=== PATIENT | male | born 1970 | race Caucasian/White ===

== ENCOUNTER 2018-07-11 23:26 | Emergency (ER) | payer SELFPAY ==
[~2018-07-11] VITALS: Ht 185.4 cm; Wt 88.5 kg
--- NOTE | 2018-07-11 23:50 | NUR ---
PTP BIBSELF C/O LEFT SIDED CHEST PAIN WITH LEFT ARM NUMBNESS AND TINGLING. PT A0X4. NAD NOTED. PT ON MONITOR IN BED 2 WITH FAMILY AT BEDSIDE. WILL CONTINUE TO MONITOR.
--- NOTE | 2018-07-11 23:52 | NUR ---
TECH AT BEDSIDE FOR EKG
--- NOTE | 2018-07-12 | NUR ---
PHLEB AT BEDSIDE FOR LAB DRAW
--- NOTE | 2018-07-12 00:02 | NUR ---
RADIOLOGY AT BEDSIDE FOR CXR
[2018-07-12 00:29] LABS: BASOPHILS % (AUTO) 0.3 % (0.0-2.0); EOSINOPHILS % (AUTO) 0.9 % (0.0-6.0); HEMATOCRIT 48 % (39-51); HEMOGLOBIN 15.8 g/dL (13.5-17.5); LYMPHOCYTES # (AUTO) 1.7 /CMM (0.8-4.8); LYMPHOCYTES % (AUTO) 23.6 % (20.0-44.0); MEAN CORPUSCULAR HGB CONC 33 g/dl (31.0-36.0); MEAN CORPUSCULAR VOLUME 96 fL (80-96); MONOCYTES # (AUTO) 0.5 /CMM (0.1-1.30); MONOCYTES % (AUTO) 7.1 % (2.0-12.0); NEUTROPHILS % (AUTO) 68.1 % (43.0-81.0); PLATELET COUNT (AUTO) 185 /CMM (150-450); RED BLOOD CELL COUNT(AUTO) 5.03 MIL/uL (4.5-6.0); WHITE BLOOD COUNT (AUTO) 7.4 K/uL (4.3-11.0)
[2018-07-12 00:39] LABS: CALCIUM, SERUM 9.4 mg/dL (8.5-10.1); CARBON DIOXIDE 30 mmol/L (21-32); CHLORIDE 107 mmol/L (98-107); CREATININE 1.1 mg/dL (0.6-1.3); GLUCOSE 98 mg/dL (74-106); POTASSIUM 3.8 mmol/L (3.5-5.1); SODIUM SERUM 145 mmol/L (136-145); UREA NITROGEN, BLOOD 16 mg/dL (7-18)
[2018-07-12 01:00] LABS: D-DIMER 0.19 mg/L(FEU (0.17-0.50)
--- NOTE | 2018-07-12 02:13 | NUR ---
Patient is resting comfortably in bed with eyes closed. Easily aroused. VSS. family at bedside.
--- NOTE | 2018-07-12 03:08 | NUR ---
PHLEB AT BEDSIDE FOR LAB DRAW
--- NOTE | 2018-07-12 04:00 | NUR ---
Patient discharged to home in stable condition. Written and verbal after care instructions given. Patient verbalizes understanding of instruction.
[2018-07-12 04:01] VITALS: BP 117/66
== END 2018-07-12 04:02 | disposition home or self-care (01) ==
LOC: ER 23:30
DX: R07.89 Other chest pain (principal)
CPT/HCPCS: 36415; 71045; 80048; 84484 ×2; 85025; 85378; 85730; 93005; 99284; A4606; Z7610